=== PATIENT | male | born 1980 | race Hispanic/Latino ===

== ENCOUNTER 2024-02-22 16:57 | Emergency (ER) | payer OTHER ==
[~2024-02-22] VITALS: Ht 172.7 cm; Wt 107.1 kg
[2024-02-22 17:25] VITALS: PULSE 68; RESP 20; TEMP 98.3
[2024-02-22] MEDS ORDERED: CELEBREX200 MG PO (18:36)
[2024-02-22 18:55] VITALS: BP 149/91; PULSE 65; RESP 16; TEMP 97.6; O2SAT 97
== END 2024-02-22 18:55 | disposition home or self-care (01) ==
LOC: FSED 17:24
DX: M25.512 Pain in left shoulder (principal); S40.012A Contusion of left shoulder, initial encounter; W01.0XXA Fall on same level from slipping, tripping and stumbling without subsequent striking against object, initial encounter; Y93.01 Activity, walking, marching and hiking; Y92.89 Other specified places as the place of occurrence of the external cause; F17.210 Nicotine dependence, cigarettes, uncomplicated
CPT/HCPCS: 99284